=== PATIENT | male | born 1985 | race Caucasian/White ===

== ENCOUNTER 2019-03-11 16:41 | Emergency (ER) | payer BC ==
[2019-03-11] MEDS ORDERED: Acetaminophen/oxyCODONE 325-5 MG Tab PO ONE ×2 (16:42→17:53)
--- NOTE | 2019-03-11 17:51 | EDM.PDOC ---
ED HPI GENERAL MEDICAL PROBLEM - General Chief Complaint: Lower Extremity Injury/Pain Stated Complaint: HURT LEG PLAYING BASKETBALL [phone] Time Seen by Provider: 03/11/19 17:39 Source of Information: Reports: Patient, Family, RN, RN Notes Reviewed History Limitations: Reports: No Limitations - History of Present Illness INITIAL COMMENTS - FREE TEXT/NARRATIVE: Pt to ER with c/o pain in the lower left leg/ankle area. Pt states he was playing basketball when he heard a "pop", and felt as if someone "kicked" him. Patient c/o pain/cramping into the left calf. Onset: Today, Sudden Left Ankle Pain Score (Numeric/FACES): 7 - Related Data Allergies Allergy/AdvReac Type Severity Reaction Status Date / Time amoxicillin Allergy Cannot Verified 03/11/19 17:03 Remember Penicillins Allergy Cannot Verified 03/11/19 17:03 Remember Home Meds: Home Meds . [No Known Home Meds] 03/11/19 [History] Past Medical History - Past Health History Medical/Surgical History: Denies Medical/Surgical History Social & Family History - Tobacco Use Smoking Status *Q: Never Smoker - Alcohol Use Days Per Week of Alcohol Use: 3 Number of Drinks Per Day: 5 Total Drinks Per Week: 15 - Recreational Drug Use Recreational Drug Use: No Review of Systems - Review of Systems Review Of Systems: ROS reveals no pertinent complaints other than HPI. ED EXAM, GENERAL - Physical Exam Exam: See Below Exam Limited By: No Limitations General Appearance: Alert, WD/WN, Mild Distress Eye Exam: Bilateral Eye: EOMI, Normal Inspection Ears: Normal External Exam, Hearing Grossly Normal Nose: Normal Inspection Throat/Mouth: Normal Inspection, Normal Voice, No Airway Compromise Head: Atraumatic, Normocephalic Neck: Normal Inspection, Supple, Non-Tender, Full Range of Motion Respiratory/Chest: No Respiratory Distress, Lungs Clear, Normal Breath Sounds, No Accessory Muscle Use, Chest Non-Tender Cardiovascular: Normal Peripheral Pulses, Regular Rate, Rhythm, No Edema, No Gallop, No JVD, No Murmur, No Rub Peripheral Pulses: 2+: Radial (L), Radial (R), Dorsalis Pedis (L), Dorsalis Pedis (R) GI/Abdominal: Normal Bowel Sounds, Soft, Non-Tender (Male) Exam: Deferred Rectal (Males) Exam: Deferred Back Exam: Normal Inspection, Full Range of Motion, NT Extremities: Leg Pain (left lower leg/ankle), Limited Range of Motion (left ankle, able to pull toes toward himself somewhat, no strength and severe pain to push foot against my hand), Other (No firm area of achilles tendon on the left lower leg, feels like "mush") Neurological: Alert, Oriented, CN II-XII Intact, Normal Cognition, Normal Gait, Normal Reflexes, No Motor/Sensory Deficits Psychiatric: Normal Affect, Normal Mood Skin Exam: Warm, Dry, Intact, Normal Color, No Rash Lymphatic: No Adenopathy Course - Vital Signs Last Recorded V/S: Last Vital Signs Temp 97.5 F 03/11/19 17:10 Pulse 90 03/11/19 17:10 Resp 16 03/11/19 17:10 BP 130/87 03/11/19 17:10 Pulse Ox 99 03/11/19 17:10 - Orders/Labs/Meds Meds: Medications Discontinued Medications Generic Name Dose Route Start Last Admin Trade Name Karishma PRN Reason Stop Dose Admin Oxycodone/Acetaminophen 1 tab 03/11/19 17:53 03/11/19 18:03 Percocet 325-5 Mg PO 03/11/19 17:54 1 tab ONETIME ONE Administration Oxycodone/Acetaminophen Confirm 03/11/19 17:53 03/11/19 18:03 Percocet 325-5 Mg Administered 03/11/19 17:54 Not Given Dose 3 tab .ROUTE .STK-MED ONE - Radiology Interpretation Free Text/Narrative:: left ankle xray: FINDINGS: Bones/joints: Normal. Soft tissues: Normal. IMPRESSION: No acute findings. Thank you for allowing us to participate in the care of your patient. Dictated and Authenticated by: Austen Maguire DO 03/11/2019 5:41 PM Central Time ([place] & [place]) See rad report Departure - Departure Time of Disposition: 17:48 Disposition: Home, Self-Care 01 Condition: Fair Clinical Impression: Rupture of Achilles tendon Qualifiers: Encounter type: initial encounter Laterality: left Qualified Code(s): S86.012A - Strain of left Achilles tendon, initial encounter - Discharge Information *PRESCRIPTION DRUG MONITORING PROGRAM REVIEWED*: No *COPY OF PRESCRIPTION DRUG MONITORING REPORT IN PATIENT CARLIN: No Instructions: Achilles Tendon Rupture, Achilles Tendon Rupture Surgery, Achilles Tendon Rupture With Nonsurgical Treatment Referrals: PCP,None [Primary Care Provider] - Forms: ED Department Discharge Additional Instructions: RX: Percocet Elevate and ice the area as tolerated Rest, non-weight bearing (use crutches, stay off the foot) Follow up with ortho on Wednesday morning May use Ibuprofen as directed for pain as well (take with food)
[2019-03-11] MEDS ORDERED: Acetaminophen/oxyCODONE 325-5 MG Tab ONE (17:53)
== END 2019-03-11 18:04 | disposition home or self-care (01) ==
LOC: DL.ED 16:41
DX: S86.012A Strain of left Achilles tendon, initial encounter (principal); Z88.1 Allergy status to other antibiotic agents; Z88.0 Allergy status to penicillin; X58.XXXA Exposure to other specified factors, initial encounter; Y93.67 Activity, basketball
CPT/HCPCS: 73610; 99283; A9270